=== PATIENT | male | born 1935 | race African-American/Black ===

== ENCOUNTER 2018-11-23 22:15 | Emergency (ER) | payer OTHER ==
[~2018-11-23] VITALS: Ht 180.3 cm; Wt 103.0 kg
[2018-11-23] MEDS ORDERED: SODIUM CHLORIDE 0.9% 1,000 ML IV ONE (22:19)
[2018-11-23] MEDS ORDERED: ONDANSETRON HCL 4MG/2ML INJ IV STA (22:19)
[2018-11-23] MEDS ORDERED: IOHEXOL-350 100 ML BOTTLE ONE (23:23)
[2018-11-23 23:31] LABS: EOSINOPHILS % 1.5 % (0.0-5.0); HEMATOCRIT. 37.8 % (42.0-52.0); HEMOGLOBIN. 12.6 g/dL (14.0-18.0); LYMPHOCYTES % 19.5 % (20.0-50.0); MEAN CORPUSCULAR HEMOGLOBIN 26.3 pg (28.0-32.0); MEAN CORPUSCULAR VOLUME 78.7 fL (80.0-94.0); MEAN PLATELET VOLUME 8.2 fl (7.4-10.4); MONOCYTES % 6.9 % (2.0-8.0); NEUTROPHILS % 71.1 % (40.0-76.0); PLATELET 252 x1000/uL (130-400); RED BLOOD CELL COUNT 4.81 mill/uL (4.7-6.1); RED CELL DISTRIBUTION WIDTH 15.7 % (11.6-14.6)
[2018-11-23 23:37] LABS: CHLORIDE 106 mEq/L (98-107)
[2018-11-23 23:40] LABS: INR 1.1; PROTHROMBIN TIME 11.1 sec (9.6-11.0)
[2018-11-23] MEDS ORDERED: ASPIRIN 325MG TABLET PO ONE (23:45)
[2018-11-24 01:56] VITALS: BP 145/86
== END 2018-11-24 02:10 | disposition short-term general hospital (02) ==
LOC: ER 22:15
DX: G45.9 Transient cerebral ischemic attack, unspecified (principal); E11.9 Type 2 diabetes mellitus without complications; I10 Essential (primary) hypertension
CPT/HCPCS: 36415; 70450; 70496; 71045; 80053; 82962; 84484; 85025; 85610; 93005; 96374; 99291; J2405; J7030; Q9967

== ENCOUNTER 2018-12-06 14:09 | Emergency (ER) | payer OTHER ==
[~2018-12-06] VITALS: Ht 175.3 cm; Wt 77.0 kg
[2018-12-06 14:23] LABS: HEMATOCRIT. 39.7 % (42.0-52.0); HEMOGLOBIN. 13.1 g/dL (14.0-18.0); MEAN CORPUSCULAR HEMOGLOBIN 25.9 pg (28.0-32.0); MEAN CORPUSCULAR VOLUME 78.4 fL (80.0-94.0); PLATELET 280 x1000/uL (130-400); RED BLOOD CELL COUNT 5.06 mill/uL (4.7-6.1); RED CELL DISTRIBUTION WIDTH 15.5 % (11.6-14.6)
[2018-12-06 14:29] LABS: CHLORIDE 106 mEq/L (98-107)
[2018-12-06 14:31] LABS: INR 1.4; PROTHROMBIN TIME 13.9 sec (9.6-11.0)
[2018-12-06 14:32] LABS: ETHANOL BLOOD < 10 mg/dL
[2018-12-06] MEDS ORDERED: SODIUM CHLORIDE 0.9% 1,000 ML IV ONE (14:48)
[2018-12-06 14:51] LABS: PLATELET ESTIMATE NORMAL
[2018-12-06 15:17] LABS: BETA HYDROXYBUTYRATE 0.1 mMol/L (0.0-0.3)
[2018-12-06] MEDS ORDERED: IOHEXOL-350 100 ML BOTTLE ONE (15:28)
[2018-12-06 16:31] LABS: CLARITY URINE CLEAR (CLEAR); COLOR URINE YELLOW (YELLOW); KETONES URINE NEGATIVE (NEGATIVE); LEUKOCYTE ESTERASE URINE NEGATIVE (NEGATIVE); NITRITE URINE NEGATIVE (NEGATIVE); OCCULT BLOOD URINE NEGATIVE (NEGATIVE); PROTEIN URINE NEGATIVE (NEGATIVE); SPECIFIC GRAVITY URINE 1.028 (1.005-1.030)
[2018-12-06 16:38] LABS: *AMPHETAMINES SCREEN URINE NEGATIVE (NEGATIVE); *BARBITURATES SCREEN URINE NEGATIVE (NEGATIVE); *BENZODIAZEPINES SCREEN URINE NEGATIVE (NEGATIVE); CANNABINOID URINE SCREEN NEGATIVE (NEGATIVE)
[2018-12-06 16:39] LABS: METHADONE URINE SCREEN NEGATIVE (NEGATIVE); OPIATES URINE SCREEN NEGATIVE (NEGATIVE); PHENCYCLIDINE URINE SCREEN NEGATIVE (NEGATIVE)
[2018-12-06 16:43] LABS: *COCAINE SCREEN URINE NEGATIVE (NEGATIVE)
[2018-12-06 18:17] VITALS: BP 145/60
== END 2018-12-06 18:47 | disposition short-term general hospital (02) ==
LOC: ER 14:09
DX: I63.9 Cerebral infarction, unspecified (principal); I48.91 Unspecified atrial fibrillation; E11.65 Type 2 diabetes mellitus with hyperglycemia; I10 Essential (primary) hypertension; I25.10 Atherosclerotic heart disease of native coronary artery without angina pectoris; Z86.73 Personal history of transient ischemic attack (TIA), and cerebral infarction without residual deficits
CPT/HCPCS: 36415; 70450; 70496; 70498; 71045; 80053; 80305; 80320; 81003; 82010; 82962; 83721; 84484; 85025; 85610; 93005; 96360; 96361; 99291; Q9967; G0480

== ENCOUNTER 2021-01-30 10:57 | Emergency (ER) | payer OTHER ==
[~2021-01-30] VITALS: Ht 172.7 cm; Wt 99.0 kg
[2021-01-30 12:24] LABS: BASOPHILS % 1.3 % (0.0-2.0); EOSINOPHILS % 2.5 % (0.0-5.0); HEMATOCRIT. 37.3 % (42.0-52.0); HEMOGLOBIN. 12.6 g/dL (14.0-18.0); LYMPHOCYTES % 24.3 % (20.0-50.0); MEAN CORPUSCULAR HEMOGLOBIN 26.7 pg (28.0-32.0); MEAN CORPUSCULAR VOLUME 79.4 fL (80.0-94.0); MEAN PLATELET VOLUME 8.7 fl (7.4-10.4); MONOCYTES % 7.7 % (2.0-8.0); NEUTROPHILS % 64.2 % (40.0-76.0); PLATELET 282 x1000/uL (130-400); RED CELL DISTRIBUTION WIDTH 16.2 % (11.6-14.6)
[2021-01-30 12:38] LABS: CHLORIDE 110 mEq/L (98-107)
[2021-01-30] MEDS ORDERED: SODIUM CHLORIDE 0.9% 500 ML IV ONE (12:45)
[2021-01-30 12:59] LABS: ETHANOL BLOOD < 10 mg/dL
[2021-01-30] MEDS ORDERED: LEVETIRACETAM 500MG TABLET PO NR (14:45)
[2021-01-30 15:26] LABS: CLARITY URINE CLOUDY (CLEAR); COLOR URINE YELLOW (YELLOW); KETONES URINE TRACE (NEGATIVE); LEUKOCYTE ESTERASE URINE 1+ (NEGATIVE); NITRITE URINE NEGATIVE (NEGATIVE); OCCULT BLOOD URINE 2+ (NEGATIVE); PH URINE 5.5 (4.5-8.0); PROTEIN URINE 1+ (NEGATIVE); SPECIFIC GRAVITY URINE 1.013 (1.005-1.030); UROBILINOGEN URINE 0.2 E.U./dL (0.2-1.0)
[2021-01-30 15:34] LABS: *AMPHETAMINES SCREEN URINE NEGATIVE (NEGATIVE); *BARBITURATES SCREEN URINE NEGATIVE (NEGATIVE); *BENZODIAZEPINES SCREEN URINE PRESUMTIVE POSITIVE (NEGATIVE); *COCAINE SCREEN URINE NEGATIVE (NEGATIVE)
[2021-01-30 15:35] LABS: CANNABINOID URINE SCREEN NEGATIVE (NEGATIVE); METHADONE URINE SCREEN NEGATIVE (NEGATIVE); OPIATES URINE SCREEN NEGATIVE (NEGATIVE); PHENCYCLIDINE URINE SCREEN NEGATIVE (NEGATIVE)
[2021-01-30] MEDS ORDERED: CEFTRIAXONE 1 G PREMIX 50 ML IV NR (16:15)
[2021-01-30] MEDS ORDERED: KEPP500 MT (16:38)
[2021-01-30] MEDS ORDERED: CEFP200T13 MT (16:38)
[2021-01-30 17:34] VITALS: BP 141/74
== END 2021-01-30 17:54 | disposition home or self-care (01) ==
LOC: ER 10:57
DX: G40.909 Epilepsy, unspecified, not intractable, without status epilepticus (principal); N39.0 Urinary tract infection, site not specified; G93.41 Metabolic encephalopathy; E87.2 Acidosis; I10 Essential (primary) hypertension; E11.9 Type 2 diabetes mellitus without complications; R90.82 White matter disease, unspecified; I25.10 Atherosclerotic heart disease of native coronary artery without angina pectoris; Z79.899 Other long term (current) drug therapy
CPT/HCPCS: 36415; 70450; 71045; 80053; 80305; 80320; 81003; 83605; 83880; 84443; 84484; 85025; 86850; 86900; 86901; 87077; 87086; 93005; 96361; 96365; 99285; J0696; J7040; G0480

== ENCOUNTER 2021-07-01 07:35 | Inpatient (IN) | payer OTHER ==
[2021-07-01] VITALS (41 sets, daily range): BP systolic 100–145; BP diastolic 35–69
[~2021-07-01] VITALS: Ht 182.9 cm; Wt 93.4 kg
[~2021-07-01 07:35] MED LIST: CEFP200T13 MT; KEPP500 MT
[2021-07-01] MEDS ORDERED: LORAZEPAM 2MG/ML CPJ IV ONE ×3 (08:00→09:30)
[2021-07-01] MEDS ORDERED: LEVETIRACETAM 500MG PREMIX 100 ML IV ONE (08:00)
[2021-07-01] MEDS ORDERED: DEXAMETHASONE 4MG/ML 1ML VIAL IV ONE (09:15)
[2021-07-01] MEDS ORDERED: MANNITOL 12.5G (25%) VIAL 50ML IV ONE (09:15)
[2021-07-01 09:22] LABS: BASOPHILS % 0.6 % (0.0-2.0); EOSINOPHILS % 0.4 % (0.0-5.0); HEMATOCRIT. 36.7 % (42.0-52.0); HEMOGLOBIN. 11.9 g/dL (14.0-18.0); MEAN CORPUSCULAR VOLUME 77.3 fL (80.0-94.0); MEAN PLATELET VOLUME 8.2 fl (7.4-10.4); MONOCYTES % 5.3 % (2.0-8.0); NEUTROPHILS % 84.7 % (40.0-76.0); PLATELET 297 x1000/uL (130-400); RED BLOOD CELL COUNT 4.74 mill/uL (4.7-6.1); RED CELL DISTRIBUTION WIDTH 16.8 % (11.6-14.6)
[2021-07-01 09:28] LABS: CHLORIDE 104 mEq/L (98-107)
[2021-07-01] MEDS ORDERED: BACITRACIN 15GM TUBE TOP ONE (09:28)
[2021-07-01] MEDS ORDERED: GENTAMICIN SULF 40MG/ML 2ML VIAL ONE (09:28)
[2021-07-01] MEDS ORDERED: LIDOCAINE HCL/EPINEPHRINE 1%-EPI 1:100,000 20 ML VIAL ONE (09:28)
[2021-07-01] MEDS ORDERED: THROMBIN (BOVINE) 5000 UNITS/VIAL TOP ONE (09:28)
[2021-07-01 09:33] LABS: ETHANOL BLOOD < 10 mg/dL
[2021-07-01 09:39] LABS: INR 1.2
[2021-07-01] MEDS ORDERED: MAGNESIUM/ALUMINUM HYDROXIDE/SIMETHICONE 30ML UDC PO PRN (10:00)
[2021-07-01] MEDS ORDERED: ACETAMINOPHEN 325MG TABLET PO PRN ×2 (10:00)
[2021-07-01] MEDS ORDERED: CLONIDINE 0.1MG TABLET PO PRN (10:00)
[2021-07-01] MEDS ORDERED: GUAIFENESIN 200MG/10ML SUGAR FREE UDC PO PRN (10:00)
[2021-07-01] MEDS ORDERED: ONDANSETRON HCL 4MG/2ML INJ IV PRN (10:00)
[2021-07-01] MEDS ORDERED: CEFAZOLIN SODIUM 1000MG/VIAL ONE (10:53)
[2021-07-01] MEDS ORDERED: CALCIUM CHLORIDE 1GM/10ML SYR IV ONE (11:11)
[2021-07-01] MEDS ORDERED: NICARDIPINE 100 MG in SODIUM CHLORIDE 0.9% 60 ML IV PRN (11:15)
[2021-07-01] MEDS ORDERED: METOPROLOL TARTRATE 5MG/5ML VIAL IV ONE ×2 (11:30→11:50)
[2021-07-01] MEDS ORDERED: HYDRALAZINE 20MG/ML VIAL ONE ×2 (11:34→11:47)
[2021-07-01] MEDS ORDERED: HYDRALAZINE 20MG/ML VIAL IV STA (11:38)
[2021-07-01] MEDS ORDERED: METOPROLOL TARTRATE 25MG TABLET PO PRN (11:45)
[2021-07-01] MEDS: NICARDIPINE 100 MG in SODIUM CHLORIDE 0.9% 60 ML IV PRN ×2 (12:20→19:16)
[2021-07-01] MEDS: DEXT 5%/LACTATED RINGERS 1,000 ML IV SCH (12:33)
[2021-07-01] MEDS ORDERED: METOPROLOL TARTRATE 5MG/5ML VIAL IV NR (12:50)
[2021-07-01] MEDS: MORPHINE SULFATE 4 MG/ML CPJ (NOT FOR IM USE) IV PRN (14:32)
[2021-07-01] MEDS ORDERED: GLIP10TA10 MT (15:48)
[2021-07-01] MEDS ORDERED: POTA-9 MT (15:48)
[2021-07-01] MEDS ORDERED: TERA10CA4 MT (15:48)
[2021-07-01] MEDS ORDERED: TRAZ-251 MT (15:48)
[2021-07-01] MEDS ORDERED: ATOR-2 MT (15:48)
[2021-07-01] MEDS ORDERED: DONE10TA36 MT (15:48)
[2021-07-01] MEDS ORDERED: DABI150C MT (15:48)
[2021-07-01] MEDS ORDERED: COR6 MT (15:48)
[2021-07-01] MEDS: CEFAZOLIN 1000MG PREMIX 50 ML IV SCH ×2 (17:48→22:30)
[2021-07-01] MEDS ORDERED: LEVETIRACETAM 500MG PREMIX 100 ML IV SCH (18:00)
[2021-07-01] MEDS ORDERED: NALOXONE HCL 0.4MG/ML VIAL IV PRN (18:30)
[2021-07-01] MEDS: LEVETIRACETAM 500MG PREMIX 100 ML IV SCH (20:41)
[2021-07-01] MEDS: HYDRALAZINE 20MG/ML VIAL IV PRN (22:30)
[2021-07-02] VITALS (72 sets, daily range): BP systolic 90–154; BP diastolic 17–103
[2021-07-02] MEDS: NICARDIPINE 100 MG in SODIUM CHLORIDE 0.9% 60 ML IV PRN (00:25)
[2021-07-02] MEDS: MORPHINE SULFATE 4 MG/ML CPJ (NOT FOR IM USE) IV PRN ×3 (00:46→22:07)
[2021-07-02] MEDS: DEXT 5%/LACTATED RINGERS 1,000 ML IV SCH ×2 (04:53→18:02)
[2021-07-02] MEDS: CEFAZOLIN 1000MG PREMIX 50 ML IV SCH ×3 (05:00→22:06)
[2021-07-02 06:06] LABS: HEMATOCRIT. 33.5 % (42.0-52.0); HEMOGLOBIN. 11.3 g/dL (14.0-18.0); LYMPHOCYTES % 8.9 % (20.0-50.0); MEAN CORPUSCULAR HEMOGLOBIN 25.8 pg (28.0-32.0); MEAN CORPUSCULAR VOLUME 76.9 fL (80.0-94.0); MEAN PLATELET VOLUME 8.5 fl (7.4-10.4); NEUTROPHILS % 86.1 % (40.0-76.0); PLATELET 277 x1000/uL (130-400); RED BLOOD CELL COUNT 4.36 mill/uL (4.7-6.1)
[2021-07-02 06:17] LABS: PHOSPHORUS 3.1 mg/dL (2.5-4.9)
[2021-07-02] MEDS: DONEPEZIL HCL 10MG TABLET PO SCH (09:25)
[2021-07-02] MEDS: LEVETIRACETAM 500MG PREMIX 100 ML IV SCH ×2 (09:25→20:40)
[2021-07-02] MEDS ORDERED: KCL 20MEQ/100ML PREMIX 100 ML IV SCH (12:00)
[2021-07-02] MEDS ORDERED: BACITRACIN 15GM TUBE TOP NR (16:00)
[2021-07-02 16:09] LABS: CLARITY URINE CLEAR (CLEAR); COLOR URINE RED (YELLOW); KETONES URINE NEGATIVE (NEGATIVE); LEUKOCYTE ESTERASE URINE 1+ (NEGATIVE); NITRITE URINE NEGATIVE (NEGATIVE); OCCULT BLOOD URINE 3+ (NEGATIVE); PROTEIN URINE 2+ (NEGATIVE); SPECIFIC GRAVITY URINE 1.014 (1.005-1.030); UROBILINOGEN URINE 0.2 E.U./dL (0.2-1.0)
[2021-07-03] VITALS (65 sets, daily range): BP systolic 63–140; BP diastolic 29–96
[2021-07-03] MEDS: DEXT 5%/LACTATED RINGERS 1,000 ML IV SCH ×2 (01:27→18:15)
[2021-07-03] MEDS: MORPHINE SULFATE 4 MG/ML CPJ (NOT FOR IM USE) IV PRN ×4 (02:41→21:32)
[2021-07-03] MEDS: CEFAZOLIN 1000MG PREMIX 50 ML IV SCH ×2 (05:02→14:36)
[2021-07-03] MEDS: LEVETIRACETAM 500MG PREMIX 100 ML IV SCH ×2 (08:26→21:31)
[2021-07-03] MEDS: DONEPEZIL HCL 10MG TABLET PO SCH (08:28)
[2021-07-03] MEDS ORDERED: DEXTROSE 50% WATER 50ML SYRINGE IV PRN (08:30)
[2021-07-03] MEDS ORDERED: POTASSIUM CHLORIDE INJ 40 MEQ in DEXT 5% WATER 250 ML IV ONE (08:30)
[2021-07-03 10:46] LABS: BASOPHILS % 0.4 % (0.0-2.0); EOSINOPHILS % 0.1 % (0.0-5.0); HEMOGLOBIN. 12.4 g/dL (14.0-18.0); LYMPHOCYTES % 10.8 % (20.0-50.0); MEAN CORPUSCULAR HEMOGLOBIN 25.4 pg (28.0-32.0); MEAN CORPUSCULAR VOLUME 77.8 fL (80.0-94.0); MEAN PLATELET VOLUME 8.5 fl (7.4-10.4); MONOCYTES % 7.7 % (2.0-8.0); PLATELET 264 x1000/uL (130-400); RED BLOOD CELL COUNT 4.89 mill/uL (4.7-6.1); RED CELL DISTRIBUTION WIDTH 17.2 % (11.6-14.6)
[2021-07-03 10:51] LABS: CHLORIDE 106 mEq/L (98-107)
[2021-07-03] MEDS: KCL 20MEQ/100ML X 2 FOR TOTAL KCL 40MEQ/200ML IV SCH ×2 (11:27→12:34)
[2021-07-03] MEDS: BLOOD SUGAR DIAGNOSTIC STRIP TEST SCH ×3 (11:27→21:54)
[2021-07-03] MEDS: INSULIN LISPRO 100 UNITS/ML SUBCUT SCH ×3 (11:29→21:58)
[2021-07-03] MEDS: HYDRALAZINE 20MG/ML VIAL IV PRN (11:48)
[2021-07-03] MEDS: NICARDIPINE 100 MG in SODIUM CHLORIDE 0.9% 60 ML IV PRN (18:15)
[2021-07-04] VITALS (67 sets, daily range): BP systolic 101–148; BP diastolic 50–85
[2021-07-04] MEDS: MORPHINE SULFATE 4 MG/ML CPJ (NOT FOR IM USE) IV PRN (01:35)
[2021-07-04] MEDS: CEFAZOLIN 1000MG PREMIX 50 ML IV SCH (01:36)
[2021-07-04 06:00] LABS: BASOPHILS % 0.3 % (0.0-2.0); EOSINOPHILS % 1.1 % (0.0-5.0); HEMATOCRIT. 35.9 % (42.0-52.0); LYMPHOCYTES % 14.5 % (20.0-50.0); MEAN CORPUSCULAR HEMOGLOBIN 25.7 pg (28.0-32.0); MEAN CORPUSCULAR VOLUME 76.5 fL (80.0-94.0); MEAN PLATELET VOLUME 8.4 fl (7.4-10.4); MONOCYTES % 13.1 % (2.0-8.0); PLATELET 232 x1000/uL (130-400); RED BLOOD CELL COUNT 4.69 mill/uL (4.7-6.1); RED CELL DISTRIBUTION WIDTH 16.8 % (11.6-14.6)
[2021-07-04 06:01] LABS: CHLORIDE 107 mEq/L (98-107)
[2021-07-04] MEDS: DEXT 5%/LACTATED RINGERS 1,000 ML IV SCH ×2 (06:48→19:40)
[2021-07-04] MEDS: INSULIN LISPRO 100 UNITS/ML SUBCUT SCH ×4 (06:48→21:35)
[2021-07-04] MEDS: BLOOD SUGAR DIAGNOSTIC STRIP TEST SCH ×4 (06:48→21:34)
[2021-07-04] MEDS: DONEPEZIL HCL 10MG TABLET PO SCH (10:56)
[2021-07-04] MEDS: LEVETIRACETAM 500MG PREMIX 100 ML IV SCH ×2 (10:56→21:28)
[2021-07-05] VITALS (57 sets, daily range): BP systolic 106–161; BP diastolic 39–95
[2021-07-05] MEDS: MORPHINE SULFATE 4 MG/ML CPJ (NOT FOR IM USE) IV PRN ×2 (00:05→09:42)
[2021-07-05 05:07] LABS: HEMOGLOBIN. 12.8 g/dL (14.0-18.0); MEAN CORPUSCULAR HEMOGLOBIN 25.7 pg (28.0-32.0); MEAN CORPUSCULAR VOLUME 76.6 fL (80.0-94.0); PLATELET 200 x1000/uL (130-400); RED BLOOD CELL COUNT 4.96 mill/uL (4.7-6.1); RED CELL DISTRIBUTION WIDTH 16.7 % (11.6-14.6)
[2021-07-05 05:18] LABS: CHLORIDE 104 mEq/L (98-107)
[2021-07-05 05:25] LABS: PHOSPHORUS 1.2 mg/dL (2.5-4.9)
[2021-07-05] MEDS: BLOOD SUGAR DIAGNOSTIC STRIP TEST SCH ×4 (06:30→21:00)
[2021-07-05] MEDS: INSULIN LISPRO 100 UNITS/ML SUBCUT SCH ×4 (07:03→21:00)
[2021-07-05 07:41] LABS: PLATELET ESTIMATE NORMAL
[2021-07-05] MEDS: DEXT 5%/LACTATED RINGERS 1,000 ML IV SCH ×2 (08:32→22:09)
[2021-07-05] MEDS: DONEPEZIL HCL 10MG TABLET PO SCH (08:32)
[2021-07-05] MEDS: LEVETIRACETAM 500MG PREMIX 100 ML IV SCH ×2 (08:32→22:07)
[2021-07-05] MEDS: TAMSULOSIN HCL 0.4MG SR CAPSULE PO SCH (10:13)
[2021-07-05] MEDS: CARVEDILOL 6.25 MG TABLET PO SCH ×2 (10:14→22:06)
[2021-07-05] MEDS ORDERED: ATORVASTATIN CALCIUM 40MG TABLET PO SCH (21:00)
[2021-07-05] MEDS ORDERED: TERAZOSIN HCL 5MG CAPSULE PO SCH (21:00)
[2021-07-06] VITALS: BP 147/77
[2021-07-06 04:00] VITALS: BP 135/64
[2021-07-06] MEDS: BLOOD SUGAR DIAGNOSTIC STRIP TEST SCH ×3 (06:16→17:17)
[2021-07-06] MEDS: INSULIN LISPRO 100 UNITS/ML SUBCUT SCH ×3 (06:18→17:24)
[2021-07-06 08:00] VITALS: BP 132/67
[2021-07-06] MEDS: LEVETIRACETAM 500MG PREMIX 100 ML IV SCH (09:41)
[2021-07-06] MEDS: TAMSULOSIN HCL 0.4MG SR CAPSULE PO SCH (09:41)
[2021-07-06] MEDS: DEXT 5%/LACTATED RINGERS 1,000 ML IV SCH (09:41)
[2021-07-06] MEDS: DONEPEZIL HCL 10MG TABLET PO SCH (09:41)
[2021-07-06] MEDS: CARVEDILOL 6.25 MG TABLET PO SCH (09:41)
[2021-07-06 10:13] LABS: BASOPHILS % 0.6 % (0.0-2.0); EOSINOPHILS % 4.8 % (0.0-5.0); HEMATOCRIT. 37.4 % (42.0-52.0); HEMOGLOBIN. 12.7 g/dL (14.0-18.0); LYMPHOCYTES % 26.8 % (20.0-50.0); MEAN CORPUSCULAR VOLUME 76.8 fL (80.0-94.0); MEAN PLATELET VOLUME 8.1 fl (7.4-10.4); MONOCYTES % 14.4 % (2.0-8.0); NEUTROPHILS % 53.4 % (40.0-76.0); PLATELET 188 x1000/uL (130-400); RED BLOOD CELL COUNT 4.87 mill/uL (4.7-6.1); RED CELL DISTRIBUTION WIDTH 17.3 % (11.6-14.6)
[2021-07-06 10:21] LABS: CHLORIDE 106 mEq/L (98-107)
[2021-07-06 10:27] LABS: PHOSPHORUS 2.5 mg/dL (2.5-4.9)
[2021-07-06 10:28] LABS: LDL CHOLESTEROL 35 mg/dL (5-100)
[2021-07-06 10:30] LABS: HDL CHOLESTEROL 67 mg/dL (40-59)
[2021-07-06 10:31] LABS: T4 FREE 1.23 ng/dL (0.76-1.46)
[2021-07-06 12:00] VITALS: BP 155/74
[2021-07-06] MEDS: HYDRALAZINE 20MG/ML VIAL IV PRN (13:02)
[2021-07-06 16:00] VITALS: BP 147/75
[2021-07-06 16:28] LABS: CREATINE KINASE 61 IU/L (39-308)
[2021-07-06 17:27] VITALS: BP 147/75
[2021-07-06] MEDS ORDERED: LEVETIRACETAM 500MG/5ML CUP PO SCH (21:00)
== END 2021-07-06 18:45 | disposition short-term general hospital (02) | DRG 25 ==
LOC: ER 07:35 → MICUNO 09:38 → EDBEDREQTM 09:40 → EDBEDREQ 09:40 → SUPCPDRO 09:57 → ENRESERV 12:19 → 7EST 07-05 20:35
PROVIDERS: ADMIT Internal Medicine; ATTEND Internal Medicine
PROC: 00C40ZZ Extirpation of Matter from Intracranial Subdural Space, Open Approach (ICD-10-PCS; principal; 2021-07-01)
PROC: 00U207Z Supplement Dura Mater with Autologous Tissue Substitute, Open Approach (ICD-10-PCS; 2021-07-01)
PROC: 009430Z Drainage of Intracranial Subdural Space with Drainage Device, Percutaneous Approach (ICD-10-PCS; 2021-07-01)
PROC: 00H602Z Insertion of Monitoring Device into Cerebral Ventricle, Open Approach (ICD-10-PCS; 2021-07-01)
PROC: 4A103BD Monitoring of Intracranial Pressure, Percutaneous Approach (ICD-10-PCS; 2021-07-01)
PROC: 02HV33Z Insertion of Infusion Device into Superior Vena Cava, Percutaneous Approach (ICD-10-PCS; 2021-07-02)
PROC: B548ZZA Ultrasonography of Superior Vena Cava, Guidance (ICD-10-PCS; 2021-07-02)
DX: I62.02 Nontraumatic subacute subdural hemorrhage (principal); G93.41 Metabolic encephalopathy; D68.9 Coagulation defect, unspecified; G81.91 Hemiplegia, unspecified affecting right dominant side; N17.9 Acute kidney failure, unspecified; E11.9 Type 2 diabetes mellitus without complications; E78.5 Hyperlipidemia, unspecified; I25.10 Atherosclerotic heart disease of native coronary artery without angina pectoris; D72.829 Elevated white blood cell count, unspecified; I48.91 Unspecified atrial fibrillation; F03.90 Unspecified dementia, unspecified severity, without behavioral disturbance, psychotic disturbance, mood disturbance, and anxiety; G40.909 Epilepsy, unspecified, not intractable, without status epilepticus; Z86.73 Personal history of transient ischemic attack (TIA), and cerebral infarction without residual deficits; Z79.899 Other long term (current) drug therapy; Z79.01 Long term (current) use of anticoagulants; Z79.84 Long term (current) use of oral hypoglycemic drugs; Z20.822 Contact with and (suspected) exposure to COVID-19; I10 Essential (primary) hypertension
CPT/HCPCS: 36415; 71045; 76937; 80048; 80053; 80061; 80320; 81003; 82550; 82553; 82962; 83036; 83735; 83880; 84100; 84145; 84439; 84443; 84484; 85025; 85379; 86850; 86900; 87426; 88305; 92610; 93005; 93306; 97116; 97162; 97166; 97530; 99291; A6261; C1713; C1725; C1758; J0360; J0690; J1100; J1580; J1815; J1953; J2060; J2150; J2270; J3480; J3490; J7050; J7070; J7120; A4315; G0480